=== PATIENT | female | born 1945 | race Caucasian/White ===

== ENCOUNTER 2017-01-13 12:33 | Emergency (ER) | payer MEDICARE ==
[2016-08-29 09:49] VITALS: BMI 34.3
[~2017-01-13 12:33] MED LIST: ARICEPT5 MG PO; BENZTROPINE MESY1 MG PO; BUTALBITAL-ASP-1 CAP PO; CELEXA20 MG PO; DEPAKOTE250 MG PO; DEPAKOTE500 MG PO; DETROL LA4 MG; DULCOLAX5 MG PO; DULERA 200 MCG8.8 GM INH; EFFEXOR XR75 MG PO; FEXOFENADINE HC60 MG PO; HALDOL DECAN50 MG/ML IM; HALDOL5 MG PO; KLONOPIN1 MG PO; KLOR-CON20 MEQ/PKT PO; LASIX40 MG PO; LATUDA80 MG; LISINOPRIL10 MG PO; MAXZIDE 75/501 TAB PO; MELATONIN 10 M1 EACH PO; MELATONIN 3 MG1 TAB PO; METOPROLOL TART25 MG PO; MILK OF MAGNESI30 ML PO; MOBIC7.5 MG PO; MYSOLINE 50 MG50 MG PO; NEXIUM40 MG; PRAVACHOL20 MG PO; PROTONIX40 MG PO; REXULTI1 MG PO; ROBAXIN500 MG PO; SENNA8.6 MG PO; SPIRIVA RESPIMAT4 G1 INH; TORADOL10 MG PO; VENTOLIN HFA18 GM INH; VITAMIN B-121000 MCG PO; VITAMIN D5000 UNIT PO; VOLTAREN100 GM TOPICAL; WELLBUTRIN XL150 M1 PO
[2017-01-13 14:27] LABS: APPEARANCE HAZY (CLEAR); COLOR DK YELLOW (YELLOW); LEUKOCYTE ESTERASE TRACE (NEGATIVE); NITRITE NEGATIVE (NEGATIVE)
[2017-01-13 14:28] LABS: BILIRUBIN NEGATIVE (NEGATIVE); GLUCOSE NEGATIVE (NEGATIVE); KETONE NEGATIVE (NEGATIVE); PROTEIN 2+ mg/dL (NEGATIVE)
[2017-01-13 14:29] LABS: WHITE CELLS - URINE 0-5 /hpf (0-5)
[2017-01-13 14:30] LABS: BACTERIA MODERATE /hpf (NONE SEEN); RED CELLS - URINE 0-5 /hpf (0-5)
[2017-01-13 14:31] LABS: BASOPHILS 0.1 % (0.0-2.0); EOSINOPHILS 0.2 % (0-7); HEMATOCRIT 37.2 % (36.0-48.0); HEMOGLOBIN 12.3 g/dL (12-16); IMMATURE GRANULOCYTES 0.3 % (0-5); MCH 31.7 pg (26.0-34.0); MCHC 33.1 g/dL (31.0-37.0); MCV 95.9 fL (80.0-100.0); MEAN PLATELET VOLUME 10.5 fL (7.4-10.4); MONOCYTES 15.8 % (2-11); NEUTROPHILS 69.6 % (40-80); RBC 3.88 10x6/uL (4.00-5.40); RDW 13.5 % (11.5-14.5); WBC 9.7 10x3/uL (4.8-10.8)
[2017-01-13 14:32] LABS: PLATELET COUNT 181 10x3/uL (130-400)
[2017-01-13 14:44] LABS: ALBUMIN 2.8 g/dL (3.4-5.0); ANION GAP 11.1 mmol/L (8-16); BILIRUBIN - TOTAL 0.5 mg/dL (0.2-1.3); CALCIUM 8.5 mg/dL (8.5-10.1); CARBON DIOXIDE 27.9 mmol/L (21.0-32.0); CREATININE - SERUM 1.1 mg/dL (0.6-1.3); PROTEIN - SERUM 7.1 g/dL (6.4-8.2)
== END 2017-01-13 16:42 | disposition home or self-care (01) ==
LOC: D.ER 12:33
PROVIDERS: Nurse Practitioner Family
DX: S40.021A Contusion of right upper arm, initial encounter (principal); X58.XXXA Exposure to other specified factors, initial encounter; Y93.89 Activity, other specified; Y92.129 Unspecified place in nursing home as the place of occurrence of the external cause; S80.01XA Contusion of right knee, initial encounter; N39.0 Urinary tract infection, site not specified; E78.5 Hyperlipidemia, unspecified; I10 Essential (primary) hypertension; F32.9 Major depressive disorder, single episode, unspecified; F22 Delusional disorders; F41.9 Anxiety disorder, unspecified; F20.9 Schizophrenia, unspecified; J44.9 Chronic obstructive pulmonary disease, unspecified; K21.9 Gastro-esophageal reflux disease without esophagitis

== ENCOUNTER 2017-01-25 16:15 | Emergency (ER) | payer MEDICARE ==
[2017-01-25 18:05] LABS: APPEARANCE HAZY (CLEAR); BILIRUBIN NEGATIVE (NEGATIVE); COLOR YELLOW (YELLOW); GLUCOSE NEGATIVE (NEGATIVE); KETONE NEGATIVE (NEGATIVE); LEUKOCYTE ESTERASE TRACE (NEGATIVE); NITRITE NEGATIVE (NEGATIVE); PROTEIN TRACE mg/dL (NEGATIVE); SPECIFIC GRAVITY 1.015 (1.005-1.020); UROBILINOGEN NORMAL (NORMAL)
[2017-01-25 18:08] LABS: BACTERIA MODERATE /hpf (NONE SEEN); EPITHELIAL CELLS 0-5 /hpf (0-5); RED CELLS - URINE 0-5 /hpf (0-5); WHITE CELLS - URINE 0-5 /hpf (0-5)
[2017-01-25 18:46] LABS: BASOPHILS 0.3 % (0-2); EOSINOPHILS 2.1 % (0-7); HEMATOCRIT 40.4 % (36.0-48.0); HEMOGLOBIN 13.2 g/dL (12-16); IMMATURE GRANULOCYTES 2.9 % (0-5); MCH 31.4 pg (26.0-34.0); MCHC 32.7 g/dL (31.0-37.0); MCV 96.2 fL (80.0-100.0); MEAN PLATELET VOLUME 9.5 fL (7.4-10.4); MONOCYTES 12.9 % (2-11); NEUTROPHILS 67.8 % (40-80); RDW 13.7 % (11.5-14.5); WBC 12.4 10x3/uL (4.8-10.8)
[2017-01-25 18:47] LABS: PLATELET COUNT 395 10x3/uL (130-400)
[2017-01-25 19:19] LABS: ALBUMIN 2.5 g/dL (3.4-5.0); ANION GAP 9.8 mmol/L (8-16); BILIRUBIN - TOTAL 0.28 mg/dL (0.2-1.3); CALCIUM 8.9 mg/dL (8.5-10.1); CARBON DIOXIDE 30.3 mmol/L (21.0-32.0); POTASSIUM - SERUM 5.1 mmol/L (3.5-5.1); PROTEIN - SERUM 7.5 g/dL (6.4-8.2)
== END 2017-01-25 19:08 | disposition home or self-care (01) ==
LOC: D.ER 16:15
PROVIDERS: Nurse Practitioner Family
DX: S01.81XA Laceration without foreign body of other part of head, initial encounter (principal); X58.XXXA Exposure to other specified factors, initial encounter; Y93.89 Activity, other specified; Y92.129 Unspecified place in nursing home as the place of occurrence of the external cause; S39.012A Strain of muscle, fascia and tendon of lower back, initial encounter; F41.9 Anxiety disorder, unspecified; F31.9 Bipolar disorder, unspecified; J44.9 Chronic obstructive pulmonary disease, unspecified; K21.9 Gastro-esophageal reflux disease without esophagitis; I10 Essential (primary) hypertension; E78.5 Hyperlipidemia, unspecified; G47.00 Insomnia, unspecified; F25.9 Schizoaffective disorder, unspecified